=== PATIENT | female | born 1965 | race Caucasian/White ===

== ENCOUNTER → 2017-12-19 15:55 | Outpatient (CLI) | payer SELFPAY ==
[2017-12-19 17:10] LABS: Hematocrit 39.1 % (37-47); Hemoglobin 13.1 g/dl (12.0-15.0); Mean Corp Hgb Conc 33.5 g/gl (32-36); Mean Corpuscular Volume 86.7 fL (81-99); Mean Platelet Vol. 9.9 fl (6.2-12.0); Platelet Count 310 K/mm3 (150-450); RBC Distribution Width CV 13.5 % (11.6-14.6); RBC Distribution Width SD 41.8 fl (35.1-43.9); Red Blood Count 4.51 M/mm3 (4.2-5.4); Scan Indicated on CBC? Y/N NO; White Blood Count 14.6 K/mm3 (4.4-11.0)
[2017-12-19 17:51] LABS: Estradiol < 11.0 pg/mL; Follicle Stimulating Hormone 107.4 mIU/mL; Luteinizing Hormone 57.4 mIU/mL; Thyroid Stim Hormone (TSH) 0.43 uIU/mL (0.358-3.74)
[2017-12-19 18:09] LABS: Progesterone Level 0.41 ng/mL (See Comment); Vitamin D,25 Hydroxy 22.2 ng/mL (29.95-100.01)
[2017-12-21 11:23] LABS: DHEA Sulfate 184.1 ug/dL (41.2-243.7)
== END ==
PROVIDERS: Family Provider Family Medicine; PCP Family Medicine; Visit Provider Specialist
DX: R53.81 Other malaise (principal); N95.8 Other specified menopausal and perimenopausal disorders
CPT/HCPCS: 36415; 82306; 82627; 82670; 83001; 83002; 84144; 84403; 84443; 85027; 82626

== ENCOUNTER 2018-03-10 16:24 | Inpatient (IN) | payer SELFPAY ==
[2018-03-10] VITALS (9 sets, daily range): BP systolic 112–145; BP diastolic 50–85; PULSE 91–115; RESP 16–20; TEMP 37.3–38.6; O2SAT 96–99; BMI 25.0; BMI 24.7
--- NOTE | 2018-03-10 16:44 | EKG12_ITS ---
Test Reason : FEVER Blood Pressure : / mmHG Vent. Rate : 104 BPM Atrial Rate : 104 BPM P-R Int : 132 ms QRS Dur : 066 ms QT Int : 332 ms P-R-T Axes : 012 023 048 degrees QTc Int : 436 ms Sinus tachycardia Otherwise normal ECG Confirmed by DANDY GREGORIO, ML ([id number]), newspaper copy editor EUNICE SMITH ([id number] on 03/13/2018 2:45:43 PM Referred By: ARMANI Confirmed By:ML DORMAN MD
--- NOTE | 2018-03-10 16:44 | RAD_ITS ---
STUDY: X-RAY CHEST REASON FOR EXAM: Female, 52 years old. Intermittent fever x1 week TECHNIQUE: Single AP portable view of the chest. COMPARISON: None. FINDINGS: There is a right lower lobe infiltrate. There is no demonstrated pleural abnormality. Normal size heart. Normal mediastinum and sabine. Normal visualized pulmonary arteries. Normal visualized aortic arch and descending thoracic aorta. Normal visualized thoracic spine. Normal visualized ribs, clavicles, and shoulders. There is no demonstrated abnormality of the visualized soft tissue structures of the upper abdomen. RAD/Chest 1 View (Portable) IMPRESSION: Right lower lobe infiltrate. Electronically Signed: Kip Zapien MD at 17:10 EDT , Service support ,
[2018-03-10] MEDS: Acetaminophen 325 MG Tablet 650 MG PO (17:10)
[2018-03-10 17:39] LABS: Bacteria 0 SEEN /hpf (None Seen); Mucous, Urine 0 SEEN /hpf (<or=2+)
[2018-03-10 17:45] LABS: Absolute Lymphocyte Count 2.33 X10^3/ul (0.83-4.51); Absolute Neutrophil Count 12.6 X10^3/uL (2.0-7.7); Basophil# 0.03 X10^3/uL; Basophil% 0.2 % (0-1); Eosinophil# 0.02 X10^3/uL; Eosinophils% 0.1 % (0-5); Hematocrit 34.6 % (37-47); Hemoglobin 11.3 g/dl (12.0-15.0); Lymphocyte # 2.33 X10^3/ul (4.0); Lymphocyte % 14.1 % (19-41); Mean Corp Hgb Conc 32.7 g/gl (32-36); Mean Corpuscular Hgb 27.8 pg (27.0-32.0); Mean Platelet Vol. 9.3 fl (6.2-12.0); Monocyte# 1.47 X10^3/uL; Monocyte% 8.9 % (0-10); Neutrophil # 12.64 X10^3/uL (2.7-7.7); Neutrophil % 76.5 % (47-70); Platelet Count 309 K/mm3 (150-450); RBC Distribution Width CV 13.3 % (11.6-14.6); RBC Distribution Width SD 41.4 fl (35.1-43.9); Red Blood Count 4.07 M/mm3 (4.2-5.4); White Blood Count 16.5 K/mm3 (4.4-11.0)
[2018-03-10 17:48] LABS: Color, Urine Yellow (Yellow); Glucose, Dipstick Normal (Normal); Ketone-Dipstick Negative (Negative); Leukocyte Esterase-Dipstick 100 /ul (Negative); Nitrite-Dipstick Negative (Negative); Occult Blood-Urine 10 /ul (Negative); Protein-Dipstick Negative (Negative); Specific Gravity, Urine 1.005 (1.002-1.030); Urine Bilirubin Dipstick Negative (Negative); Urine Clarity Sl. Cloudy (Clear); Urine Urobilinogen Normal (Normal); Urine pH 6.5 (5.0 - 8.0)
[2018-03-10 17:53] LABS: POSITIVE COUNT NO; POSITIVE DIFFERENTIAL NO; POSITIVE MORPHOLOGY NO
[2018-03-10 17:55] LABS: International Normalized Ratio 1.1; Prothrombin Time (Protime)PT. 14.1 SECONDS (11.7-14.9)
[2018-03-10 17:56] LABS: Partial Thromboplast Time 33.4 Seconds (24.1-36.2)
[2018-03-10 18:03] LABS: ALB/GLOB Ratio 0.7 RATIO (0.9-2.4); AST(SGOT) 23 U/L (15-37); Alanine Aminotransfer ALT/SGPT 43 U/L (13-56); Albumin, Serum 3.3 g/dL (3.2-5.0); Alkaline Phosphatase 85 U/L (45-117); Anion Gap 7 (5-15); BUN 10 mg/dL (7-18); BUN/Creat Ratio 14.9 RATIO (10-20); Calcium,Total 8.7 mg/dL (8.5-10.1); Chloride 103 mmol/L (98-107); Creatinine, Serum 0.67 mg/dL (0.55-1.02); EST Glomerular Filtration Rate 98 mL/min (>60); Est Glom Filt Rate - Afr Amer 119 mL/min (>60); Estimated Creatinine Clearance 82.17 ml/min; Globulin 4.7 g/dL (2.2-4.2); Glucose 85 mg/dL (74-106); Potassium 3.4 mmol/L (3.5-5.1); Sodium Level 136 mmol/L (136-145)
[2018-03-10 18:09] LABS: Red Blood Cells-Urine 0-5 SEEN /hpf (0-5); Squamous Epithelial Cells - UA 0-5 SEEN /hpf (5-10); White Blood Cells 5-10 SEEN /hpf (0-5)
--- NOTE | 2018-03-10 18:53 | ED.DCSUM_ITS ---
- ER Visit Summary Date of Service: 03/10/18 Chief Complaint: Patient presents with a fever. History of Present Illness: The patient is a 52 F who has a fever. Started yesterday. She took her temperature orally and it was 103?F at home. Patient has had some sinus congestion and headache as well. She has had some slight dysuria. She also admits to a cough. No nausea, vomiting or diarrhea. She has been trying Advil and allergy medicines without any relief. She has a history of Kilpatrick syndrome and has had colon cancer, uterine cancer and skin cancer. She has had a full colectomy. Physical Examination: Vital signs reviewed. HEENT exam unremarkable. Heart is tachycardic and regular rhythm without murmurs. Lungs are clear to auscultation. Abdomen is soft and nontender. Extremities reveal no edema. Skin exam normal. Neurologic exam normal. Test Results: EKG is sinus rhythm with a rate of 104 chest x-ray reveals a right lower lobe infiltrate consistent with pneumonia. White blood cell count 16.5. Lactate normal Emergency Department Course and Treatment: Patient has sepsis with a pulmonary source. Blood pressure is been normal throughout her stay in the hospital. She has not been in the hospital in the past 3 months. I will give her Rocephin and azithromycin. She will be admitted to the hospital. Treatment Plan: [] Disposition: Admit Impression: Sepsis, community-acquired pneumonia This note was generated with [employer] dictation software. It may contain incorrect words, spelling, and punctuation that were not noted in review of the chart prior to signing ED Disposition - Plan for ED Patient: Chief Complaint: Fever Referrals: Hermelinda Live MD [Primary Care Provider] -
[2018-03-10] MEDS: Ceftriaxone 1 GM/50 ML BAG IV (19:03)
--- NOTE | 2018-03-10 19:55 | HP.PCM_ITS ---
Problem List (1) Sepsis Status: Acute (2) CAP (community acquired pneumonia) Status: Acute (3) Hemorrhoids Status: Acute (4) History of colon cancer Status: Acute (5) History of incisional hernia repair Status: Acute Comment: 11/06/2017 (6) History of uterine cancer Status: Acute (7) Hypothyroidism Status: Acute (8) Kilpatrick syndrome Status: Acute History of Present Illness Date of Admission: 03/10/18 Chief Complaint: Sepsis secondary to CAP The patient is a 52 year old female w/ h/o hypothyroid, Kilpatrick syndrome, colon cancer s/p colectomy, uterine cancer and skin cancer is admitted for sepsis secondary to CAP. She felt generalized malaise and myalgia yesterday. She had chill and spiked a fever to 103. She has a nonproductive cough. No change in frequency or intensity of the cough. No sick contact. She also has congestion and a dull throbbing headache. Nothing appeared to make the headache better or worse. The headache was episodic. Headache was not associated with any other symptoms. She tried Advil to help with her symptoms but no improvement. She came to the ED for further evaluation. Past Medical History Allergies adhesive tape Allergy (Verified 03/10/18 17:16) Rash Penicillins Adverse Reaction (Mild, Verified 03/10/18 17:16) canker sores canker sores Home Medications: Ambulatory Orders Medication Instructions Recorded ascorbic acid (vitamin C) 500 mg 500 mg PO QDAY 10/25/17 chewable tablet digestive enzymes tablet 1 tab PO TID 10/25/17 estradiol 0.5 mg tablet 0.5 mg PO QDAY 10/25/17 lactobacillus combination no.8 3 3,000 mmu cells PO QDAY 10/25/17 billion cell capsule progesterone micronized 200 mg 400 mg PO QHS cap 10/25/17 capsule Amour Thyroid 45 mg PO DAILY 10/30/17 Indoltlex 1 cap PO DAILY 10/30/17 Multivit with Calcium,Iron,Min 4 ea PO DAILY 10/30/17 [Multiple Vitamins For Women] Surgical History: - - Colectomy Psychiatric History: No pertinent psych hx 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 Denies: Weight Change HEENT: Reports: Head Aches. Denies: Sinus Congestion, Sinus Drainage Cardiovascular: Denies: Chest Pain, Palpitations Respiratory: Reports: Cough, Shortness of Breath. Denies: Shortness of breath at rest, Sputum production Gastrointestinal: Denies: Abdominal Pain, Nausea, Vomiting Genitourinary: Denies: Dysuria Musculoskeletal: Denies: Joint Pain, Joint Tenderness Skin: Denies: Rash, Wounds Neurological: Denies: Numbness, Tingling, Focal weakness Psychiatric: Denies: Anxiety, Depression, Homicidal Ideations, Suicidal Ideations Hematologic/ Lymphatic: Denies: Easy Bruising, Easy Bleeding VTE Information - Inpt Only VTE Present on Admission: No VTE Mechan Device Prophylaxis: SCD's VTE Pharm Prophylaxis ordered?: Yes Patient Problems: Active and Suspected Problems (Last Reviewed 11/15/17 @ 07:47 by Ginny Lopez) Sepsis (Acute) CAP (community acquired pneumonia) (Acute) - Physical Exam General: Alert, Oriented x3, Cooperative HEENT: Atraumatic, PERRLA, EOMI, Normocephalic Neck: Supple, No JVD, Negative Carotid Bruits Lungs: Diminished, Rales, Wheezes Cardiovascular: Regular rate, No murmurs Abdomen: Bowel Sounds Present, Soft, Non Tender Extremities: No edema, Capillary Refill Less than 3 Seconds Skin: No rashes, No breakdown Musculoskeletal: No Tenderness to Palpation of Joints or Extremities Neurological: Cranial nerves II-XII grossly intact Psych/Mental Status: Normal Affect, Appropriate Vital Signs Temp Pulse Resp BP Pulse Ox 101.5 F H 97 20 H 115/65 98 03/10/18 17:33 03/10/18 19:01 03/10/18 19:01 03/10/18 19:01 03/10/18 19:01 Oxygen Flow Rate (L/min) 2 Oxygen Delivery Method Nasal Cannula Weight: 64.1 kg Body Mass Index (BMI) 25.0 Laboratory Tests Past 24 Hrs 03/10/18 03/10/18 03/10/18 17:15 17:15 17:15 WBC 16.5 H RBC 4.07 L Hgb 11.3 L Hct 34.6 L MCV 85.0 MCH 27.8 MCHC 32.7 RDW 13.3 RDW Differential 41.4 Plt Count 309 MPV 9.3 Immature Gran % (Auto) 0.200 Neut % (Auto) 76.5 H Lymph % (Auto) 14.1 L Foster % (Auto) 8.9 Eos % (Auto) 0.1 Baso % (Auto) 0.2 Absolute Neuts (auto) 12.6 H Absolute Lymphs (auto) 2.33 Total Counted Not Reportable PT 14.1 INR 1.1 APTT 33.4 Sodium 136 Potassium 3.4 L Chloride 103 Carbon Dioxide 26.0 Anion Gap 7 BUN 10 Creatinine 0.67 Estim Creat Clear Calc 82.17 Est GFR (MDRD) Af Amer 119 Est GFR (MDRD) Non-Af 98 BUN/Creatinine Ratio 14.9 Glucose 85 Lactic Acid Calcium 8.7 Total Bilirubin 0.50 AST 23 ALT 43 Alkaline Phosphatase 85 Total Protein 8.0 Albumin 3.3 Globulin 4.7 H Albumin/Globulin Ratio 0.7 L Urine Color Urine Clarity Urine pH Ur Specific [place] Urine Protein Urine Glucose (UA) Urine Ketones Urine Occult Blood Urine Nitrite Urine Bilirubin Urine Urobilinogen Ur Leukocyte Esterase Urine RBC Urine WBC Ur Squamous Epith Cells Urine Bacteria Urine Mucus 03/10/18 03/10/18 17:15 17:20 WBC RBC Hgb Hct MCV MCH MCHC RDW RDW Differential Plt Count MPV Immature Gran % (Auto) Neut % (Auto) Lymph % (Auto) Foster % (Auto) Eos % (Auto) Baso % (Auto) Absolute Neuts (auto) Absolute Lymphs (auto) Total Counted PT INR APTT Sodium Potassium Chloride Carbon Dioxide Anion Gap BUN Creatinine Estim Creat Clear Calc Est GFR (MDRD) Af Amer Est GFR (MDRD) Non-Af BUN/Creatinine Ratio Glucose Lactic Acid 1.0 Calcium Total Bilirubin AST ALT Alkaline Phosphatase Total Protein Albumin Globulin Albumin/Globulin Ratio Urine Color Yellow Urine Clarity Sl. Cloudy Urine pH 6.5 Ur Specific [place] 1.005 Urine Protein Negative Urine Glucose (UA) Normal Urine Ketones Negative Urine Occult Blood 10 H Urine Nitrite Negative Urine Bilirubin Negative Urine Urobilinogen Normal Ur Leukocyte Esterase 100 H Urine RBC 0-5 SEEN Urine WBC 5-10 SEEN Ur Squamous Epith Cells 0-5 SEEN Urine Bacteria 0 SEEN Urine Mucus 0 SEEN Assessment/Plan Active and Suspected Problems (Last Reviewed 11/15/17 @ 07:47 by Ginny Lopez) Sepsis (Acute) CAP (community acquired pneumonia) (Acute) 52 year old female w/ h/o hypothyroid, Kilpatrick syndrome, colon cancer s/p colectomy, uterine cancer and skin cancer is admitted for sepsis secondary to CAP. 1) Sepsis secondary to CAP: Chest xray disclosed a right lower lobe infiltrate. Leukocytosis and fever noted. She has cough. Will start ceftriaxone and azithromycin. Cultures pending. 2) Anemia: Stable. Probably secondary to chronic disease. Monitor. 3) Chronic issues: hypothyroid, Kilpatrick syndrome, colon cancer s/p colectomy, uterine cancer and skin cancer: Resume home meds. Supportive care. 4) Prophylaxis: Lovenox
[2018-03-10] MEDS: guaiFENesin 1,200 MG Tablet 1200 MG PO (23:11)
[2018-03-11] VITALS (8 sets, daily range): BP systolic 105–116; BP diastolic 66–68; PULSE 55–93; RESP 16–18; TEMP 36.8–37; O2SAT 98–100
[2018-03-11] MEDS: Ipratropium/Albuterol Sulfate 3 ML AMPUL.NEB INHALATION ×3 (00:50→12:56)
[2018-03-11] MEDS: 0.9% Normal Saline 1,000 ML 125 ML IV (03:36)
--- NOTE | 2018-03-11 04:30 | RAD_ITS ---
STUDY: X-RAY CHEST REASON FOR EXAM: Female, 52 years old. Short of breath, dyspnea. TECHNIQUE: PA and lateral chest. COMPARISON: 03/10/2018. FINDINGS: Right middle lobe moderately dense infiltrate, consistent with acute pneumonia. Normal cardiomediastinal silhouette, sabine and pleural margins. No acute osseous or upper abdominal process. RAD/Chest PA and Lateral IMPRESSION: Right middle lobe partially consolidating pneumonia. Electronically Signed: Jony Fraser, at 8:37 EDT Tel , Service support ,
[2018-03-11] MEDS: Thyroid 15 MG Tablet 45 MG PO (06:10)
--- NOTE | 2018-03-11 09:22 | PCM.PN.HOSP ---
Patient Problems: Active and Suspected Problems (Last Reviewed 11/15/17 @ 07:47 by Ginny Lopez) Sepsis (Acute) CAP (community acquired pneumonia) (Acute) Subjective: feeling good. complains of pain in lateral neck when she coughs. coughs non-productive. Vitals/I&O's: Vital Signs Temp Pulse Resp BP Pulse Ox 37.0 C 85 16 108/66 98 03/11/18 04:00 03/11/18 07:06 03/11/18 07:06 03/11/18 04:00 03/11/18 04:00 Oxygen Delivery Method Room Air Weight: 63.2 kg Body Mass Index (BMI) 24.7 Intake and Output for Last 24 Hours 03/09/18 03/10/18 03/11/18 23:59 23:59 23:59 Intake Total 1580 / 1580 Balance 1580 / 1580 General: Alert, Cooperative, No apparent distress, Well developed, Well nourished HEENT: Atraumatic, Normocephalic Oral: Moist Mucosa Neck: No Nodes, Thyroid Normal Size and Texture Lungs: No rhonchi, No wheeze, - - crackles RLL Cardiovascular: Regular rate, Regular Rhythm, Normal S1, Normal S2 Abdomen: Bowel Sounds Present, Soft, Non Tender, Non-Distended, No Hepato-splenomegaly, Passing Flatus Extremities: No edema, No Calf Tenderness Psych/Mental Status: Normal Affect, Appropriate Microbiology Past 72 Hours 03/10/18 22:12 Urine, Clean Catch Streptococcus pneumoniae Antigen (M - Final 03/10/18 22:12 Urine, Clean Catch Legionella Antigen - Final 03/10/18 20:58 Mucosa - Nasopharyngeal Influenza Types A,B Direct FA (TRISTAN) - Final Current Medications Acetaminophen (Tylenol) 650 mg PO Q4H PRN PRN PRN Reason: FEVER Albuterol/Ipratropium (Duoneb) 3 ml INHALATION Q6H.RT [facility] Last Admin: 03/11/18 07:06 Dose: 3 ml Ascorbic Acid (Vitamin C) 500 mg PO DAILY [facility] Enoxaparin Sodium (Lovenox) 40 mg SC DAILY [facility] Estradiol (Estradiol) 0.5 mg PO DAILY [facility] Guaifenesin (Mucinex) 1,200 mg PO BID [facility] Last Admin: 03/10/18 23:11 Dose: 1,200 mg Sodium Chloride () 1,000 mls @ 125 mls/hr IV .Q8H [facility] Last Admin: 03/11/18 03:36 Dose: 125 mls/hr Ceftriaxone Sodium (Rocephin) 1 gm in 50 mls @ 100 mls/hr IV Q24 [facility] Azithromycin 500 mg/ Dextrose 255 mls @ 250 mls/hr IV Q24 [facility] Stop: 03/13/18 11:02 Lactobacillus Acidophilus (Acidophilus) 1 tablet PO DAILY [facility] Sodium Chloride () 5 - 30 ml IV UD PRN PRN Reason: SALINE FLUSH Thyroid ([place] Thyroid) 45 mg PO DAILY@0600 [facility] Last Admin: 03/11/18 06:10 Dose: 45 mg Medical Necessity - Tobacco Use Smoking Status: Never smoker Assessment/Plan Active and Suspected Problems (Last Reviewed 11/15/17 @ 07:47 by Ginny Lopez) Sepsis (Acute) CAP (community acquired pneumonia) (Acute) 1. Sepsis: POA resolved 2/2 #2 2. suspected pneumococcal pneumonia strep Ag, leg Ag, flu negative discharge with Levaquin and albuterol MDI ok to return to work as long and she does not have fevers.
--- NOTE | 2018-03-11 09:27 | PN_ITS ---
Patient Problems: Active and Suspected Problems (Last Reviewed 11/15/17 @ 07:47 by Ginny Lopez) Sepsis (Acute) CAP (community acquired pneumonia) (Acute) Subjective: feeling good. complains of pain in lateral neck when she coughs. coughs non- productive. Vitals/I&O's: Vital Signs Temp Pulse Resp BP Pulse Ox 37.0 C 85 16 108/66 98 03/11/18 04:00 03/11/18 07:06 03/11/18 07:06 03/11/18 04:00 03/11/18 04:00 Oxygen Delivery Method Room Air Weight: 63.2 kg Body Mass Index (BMI) 24.7 Intake and Output for Last 24 Hours 03/09/18 03/10/18 03/11/18 23:59 23:59 23:59 Intake Total 1580 / 1580 Balance 1580 / 1580 General: Alert, Cooperative, No apparent distress, Well developed, Well nourished HEENT: Atraumatic, Normocephalic Oral: Moist Mucosa Neck: No Nodes, Thyroid Normal Size and Texture Lungs: No rhonchi, No wheeze, - - crackles RLL Cardiovascular: Regular rate, Regular Rhythm, Normal S1, Normal S2 Abdomen: Bowel Sounds Present, Soft, Non Tender, Non-Distended, No Hepato- splenomegaly, Passing Flatus Extremities: No edema, No Calf Tenderness Psych/Mental Status: Normal Affect, Appropriate Microbiology Past 72 Hours 03/10/18 22:12 Urine, Clean Catch Streptococcus pneumoniae Antigen (M - Final 03/10/18 22:12 Urine, Clean Catch Legionella Antigen - Final 03/10/18 20:58 Mucosa - Nasopharyngeal Influenza Types A,B Direct FA (TRISTAN) - Final Current Medications Acetaminophen (Tylenol) 650 mg PO Q4H PRN PRN PRN Reason: FEVER Albuterol/Ipratropium (Duoneb) 3 ml INHALATION Q6H.[facility] Last Admin: 03/11/18 07:06 Dose: 3 ml Ascorbic Acid (Vitamin C) 500 mg PO DAILY [facility] Enoxaparin Sodium (Lovenox) 40 mg SC DAILY [facility] Estradiol (Estradiol) 0.5 mg PO DAILY [facility] Guaifenesin (Mucinex) 1,200 mg PO BID [facility] Last Admin: 03/10/18 23:11 Dose: 1,200 mg Sodium Chloride () 1,000 mls @ 125 mls/hr IV .Q8H [facility] Last Admin: 03/11/18 03:36 Dose: 125 mls/hr Ceftriaxone Sodium (Rocephin) 1 gm in 50 mls @ 100 mls/hr IV Q24 [facility] Azithromycin 500 mg/ Dextrose 255 mls @ 250 mls/hr IV Q24 [facility] Stop: 03/13/18 11:02 Lactobacillus Acidophilus (Acidophilus) 1 tablet PO DAILY [facility] Sodium Chloride () 5 - 30 ml IV UD PRN PRN Reason: SALINE FLUSH Thyroid ([place] Thyroid) 45 mg PO DAILY@0600 [facility] Last Admin: 03/11/18 06:10 Dose: 45 mg Medical Necessity - Tobacco Use Smoking Status: Never smoker Assessment/Plan Active and Suspected Problems (Last Reviewed 11/15/17 @ 07:47 by Ginny Lopez) Sepsis (Acute) CAP (community acquired pneumonia) (Acute) 1. Sepsis: * POA * resolved * 2/2 #2 2. suspected pneumococcal pneumonia * strep Ag, leg Ag, flu negative * discharge with Levaquin and albuterol MDI * ok to return to work as long and she does not have fevers.
--- NOTE | 2018-03-11 09:31 | PCM.DC ---
- Discharge Diagnoses Current Active Problems: Current Active and Chronic Problems (Last Reviewed 11/15/17 @ 07:47 by Ginny Lopez) Sepsis (Acute) CAP (community acquired pneumonia) (Acute) You will use the following diet at home:: No restrictions Your food should be the consistency of: Regular Your liquids should be the consistency of: Regular/Thin Discharge Activity: Return to Normal Activity Call your doctor if you observe: Fever of 101 or Higher, Shortness of breath Allergies/Adverse Reactions: Allergies adhesive tape Allergy (Verified 03/10/18 17:16) Rash Penicillins Adverse Reaction (Mild, Verified 03/10/18 17:16) canker sores canker sores Medications to take at Discharge ascorbic acid (vitamin C) 500 mg chewable tablet 500 mg PO QDAY 10/25/17 digestive enzymes tablet 1 tab PO TID 10/25/17 estradiol 0.5 mg tablet 0.5 mg PO QDAY 10/25/17 lactobacillus combination no.8 3 billion cell capsule 3,000 mmu cells PO QDAY 10/25/17 progesterone micronized 200 mg capsule 400 mg PO QHS cap 10/25/17 Amour Thyroid 45 mg PO DAILY 10/30/17 Indoltlex 1 cap PO DAILY 10/30/17 Multivit with Calcium,Iron,Min [Multiple Vitamins For Women] 4 ea PO DAILY 10/30/17 Albuterol Inhaler [Ventolin Hfa] 1 - 2 puff INHALATION Q4H PRN PRN #1 inhaler 03/11/18 Guaifenesin [Mucinex] 1,200 mg PO BID #10 tab 03/11/18 levoFLOXacin tablet [Levaquin tablet] 750 mg PO DAILY #5 tab 03/11/18 The following prescriptions were given: Albuterol Inhaler [Ventolin Hfa] 1 - 2 puff INHALATION Q4H PRN PRN #1 inhaler PRN Reason: Shortness Of Breath levoFLOXacin tablet [Levaquin tablet] 750 mg PO DAILY #5 tab Guaifenesin [Mucinex] 1,200 mg PO BID #10 tab Primary Care Physician: Hermelinda Live MD [Primary Care Provider] - Within 2 Weeks Proposed Discharge Date: 03/11/18
--- NOTE | 2018-03-11 09:32 | PCM.DC.SUM ---
Discharge Date and Diagnosis - Problem List Patient Problems: Active and Suspected Problems (Last Reviewed 11/15/17 @ 07:47 by Ginny Lopez) Sepsis (Acute) CAP (community acquired pneumonia) (Acute) Date of Admission: 03/10/18 Date of Discharge: 03/11/18 - Primary Discharge Diagnosis Active and Suspected Problems (Last Reviewed 11/15/17 @ 07:47 by Ginny Lopez) Sepsis (Acute) CAP (community acquired pneumonia) (Acute) Hospital Course and Treatment Imaging Results: 03/11/18 04:30 Chest PA and Lateral [RAD] Routine Clinical Impression(s) from Imaging Studies Chest X-Ray 03/10/18 16:44 IMPRESSION: Right lower lobe infiltrate. Electronically Signed: Kip Zapien MD at 17:10 EDT , Service support , Chest X-Ray 03/11/18 04:30 IMPRESSION: Right middle lobe partially consolidating pneumonia. Electronically Signed: Jony Fraser at 8:37 EDT Tel , Service support , Operations: None Procedures: None Summary of Care Provided: The patient is a 52 year old F presents with malaise and myalgias. Patient had a temperature of 103 Fahrenheit. Patient had chest x-ray that showed possible right lower lobe pneumonia. Patient was admitted for pneumonia. Patient was started on Rocephin and azithromycin. The following day patient is feeling much better, no further fever patient is not clinically septic. Patient did have urinary antigens for Streptococcus and Legionella which were negative. Flu was also negative. Patient will be discharged with 5 days of Levaquin. Patient is advised to follow-up with her primary care physician in the next 1-2 weeks. Patient instructed to return if she is feeling worse. [] Discharge Diet: No Restrictions Discharge Activity: Return to Normal Activity Call your doctor if you observe: Fever of 101 or Higher, Shortness of breath Home Medications: Medications to take at Discharge ascorbic acid (vitamin C) 500 mg chewable tablet 500 mg PO QDAY 10/25/17 digestive enzymes tablet 1 tab PO TID 10/25/17 estradiol 0.5 mg tablet 0.5 mg PO QDAY 10/25/17 lactobacillus combination no.8 3 billion cell capsule 3,000 mmu cells PO QDAY 10/25/17 progesterone micronized 200 mg capsule 400 mg PO QHS cap 10/25/17 Amour Thyroid 45 mg PO DAILY 10/30/17 Indoltlex 1 cap PO DAILY 10/30/17 Multivit with Calcium,Iron,Min [Multiple Vitamins For Women] 4 ea PO DAILY 10/30/17 Albuterol Inhaler [Ventolin Hfa] 1 - 2 puff INHALATION Q4H PRN PRN #1 inhaler 03/11/18 Guaifenesin [Mucinex] 1,200 mg PO BID #10 tab 03/11/18 levoFLOXacin tablet [Levaquin tablet] 750 mg PO DAILY #5 tab 03/11/18 Following Prescrptions Were Given to Patient: Albuterol Inhaler [Ventolin Hfa] 1 - 2 puff INHALATION Q4H PRN PRN #1 inhaler PRN Reason: Shortness Of Breath levoFLOXacin tablet [Levaquin tablet] 750 mg PO DAILY #5 tab Guaifenesin [Mucinex] 1,200 mg PO BID #10 tab Primary Care Physician: Hermelinda Live MD [Primary Care Provider] - Within 2 Weeks Disposition: Home Minutes spent on discharge:: 28 Patient Condition:: Good Medical Necessity - Tobacco Use Smoking Status: Never smoker Meaningful Use Info Meaningful Use Diagnoses (Choose all that apply): None applicable Code Visit Inpatient E&M: 61128 Disch Hosp
--- NOTE | 2018-03-11 09:35 | DS.PCM_ITS ---
Discharge Date and Diagnosis - Problem List Patient Problems: Active and Suspected Problems (Last Reviewed 11/15/17 @ 07:47 by Ginny Lopez) Sepsis (Acute) CAP (community acquired pneumonia) (Acute) Date of Admission: 03/10/18 Date of Discharge: 03/11/18 - Primary Discharge Diagnosis Active and Suspected Problems (Last Reviewed 11/15/17 @ 07:47 by Ginny Lopez) Sepsis (Acute) CAP (community acquired pneumonia) (Acute) Hospital Course and Treatment Imaging Results: 03/11/18 04:30 Chest PA and Lateral [RAD] Routine Clinical Impression(s) from Imaging Studies Chest X-Ray 03/10/18 16:44 IMPRESSION: Right lower lobe infiltrate. Electronically Signed: Kip Zapien MD at 17:10 EDT , Service support , Chest X-Ray 03/11/18 04:30 IMPRESSION: Right middle lobe partially consolidating pneumonia. Electronically Signed: Jony Fraser at 8:37 EDT Tel , Service support , Operations: None Procedures: None Summary of Care Provided: The patient is a 52 year old F presents with malaise and myalgias. Patient had a temperature of 103 Fahrenheit. Patient had chest x-ray that showed possible right lower lobe pneumonia. Patient was admitted for pneumonia. Patient was started on Rocephin and azithromycin. The following day patient is feeling much better, no further fever patient is not clinically septic. Patient did have urinary antigens for Streptococcus and Legionella which were negative. Flu was also negative. Patient will be discharged with 5 days of Levaquin. Patient is advised to follow-up with her primary care physician in the next 1-2 weeks. Patient instructed to return if she is feeling worse. [] Discharge Diet: No Restrictions Discharge Activity: Return to Normal Activity Call your doctor if you observe: Fever of 101 or Higher, Shortness of breath Home Medications: Medications to take at Discharge ascorbic acid (vitamin C) 500 mg chewable tablet 500 mg PO QDAY 10/25/17 digestive enzymes tablet 1 tab PO TID 10/25/17 estradiol 0.5 mg tablet 0.5 mg PO QDAY 10/25/17 lactobacillus combination no.8 3 billion cell capsule 3,000 mmu cells PO QDAY progesterone micronized 200 mg capsule 400 mg PO QHS cap 10/25/17 Amour Thyroid 45 mg PO DAILY 10/30/17 Indoltlex 1 cap PO DAILY 10/30/17 Multivit with Calcium,Iron,Min [Multiple Vitamins For Women] 4 ea PO DAILY 10/30 Albuterol Inhaler [Ventolin Hfa] 1 - 2 puff INHALATION Q4H PRN PRN #1 inhaler Guaifenesin [Mucinex] 1,200 mg PO BID #10 tab 03/11/18 levoFLOXacin tablet [Levaquin tablet] 750 mg PO DAILY #5 tab 03/11/18 Following Prescrptions Were Given to Patient: Albuterol Inhaler [Ventolin Hfa] 1 - 2 puff INHALATION Q4H PRN PRN #1 inhaler PRN Reason: Shortness Of Breath levoFLOXacin tablet [Levaquin tablet] 750 mg PO DAILY #5 tab Guaifenesin [Mucinex] 1,200 mg PO BID #10 tab Primary Care Physician: Hermelinda Live MD [Primary Care Provider] - Within 2 Weeks Disposition: Home Minutes spent on discharge:: 28 Patient Condition:: Good Medical Necessity - Tobacco Use Smoking Status: Never smoker Meaningful Use Info Meaningful Use Diagnoses (Choose all that apply): None applicable Code Visit Inpatient E&M: 24251 Disch Hosp
[2018-03-11] MEDS: guaiFENesin 1,200 MG Tablet 1200 MG PO (09:57)
[2018-03-11] MEDS: Ascorbic Acid 500 MG Tablet PO (10:00)
[2018-03-11] MEDS: Ceftriaxone 1 GM/50 ML BAG IV (10:05)
== END 2018-03-11 13:10 | disposition home or self-care (01) | DRG 871 ==
LOC: ED 18:35 → MS3 19:49
PROVIDERS: Admitting Provider Internal Medicine; Emergency Provider Emergency Medicine; Family Provider Family Medicine; PCP Family Medicine
DX: A41.9 Sepsis, unspecified organism (principal); J18.9 Pneumonia, unspecified organism; R30.0 Dysuria; Z85.038 Personal history of other malignant neoplasm of large intestine; Z85.42 Personal history of malignant neoplasm of other parts of uterus; Z85.828 Personal history of other malignant neoplasm of skin; E03.9 Hypothyroidism, unspecified; D64.9 Anemia, unspecified
CPT/HCPCS: 36415; 71045; 71046; 80053; 81001; 83605; 85025; 85610; 85730; 87040; 87077; 87086; 87088; 87186; 87449; 87804; 93005; 94640; 99283; J7030; A4216

== ENCOUNTER → 2018-06-04 07:17 | Outpatient (CLI) | payer SELFPAY ==
[2018-06-04 08:56] LABS: Estradiol 23.5 pg/mL; Free T3 2.9 pg/mL (2.18-3.98); T4 Free Direct 0.88 ng/dL (0.76-1.46); Thyroid Stim Hormone (TSH) 1.42 uIU/mL (0.358-3.74)
[2018-06-05 08:57] LABS: Progesterone Level 38.79 ng/mL (See Comment)
== END ==
PROVIDERS: Family Provider Family Medicine; PCP Family Medicine; Visit Provider Specialist
DX: E03.8 Other specified hypothyroidism (principal); N95.1 Menopausal and female climacteric states
CPT/HCPCS: 36415; 82670; 84144; 84403; 84439; 84443; 84481

== ENCOUNTER 2018-07-23 19:24 | Emergency (ER) | payer SELFPAY ==
[2018-07-23 19:26] VITALS: BP 138/94; PULSE 85; RESP 16; TEMP 37; O2SAT 100; BMI 23.9
[2018-07-23 20:33] VITALS: PULSE 87; RESP 17; O2SAT 97
[2018-07-23 20:34] LABS: Absolute Neutrophil Count 4.6 X10^3/uL (2.0-7.7); Basophil# 0.04 X10^3/uL; Basophil% 0.5 % (0-1); Eosinophil# 0.27 X10^3/uL; Eosinophils% 3.1 % (0-5); Hematocrit 41.9 % (37-47); Lymphocyte % 36.6 % (19-41); Mean Corp Hgb Conc 33.4 g/gl (32-36); Mean Corpuscular Hgb 28.9 pg (27.0-32.0); Mean Corpuscular Volume 86.4 fL (81-99); Mean Platelet Vol. 9.6 fl (6.2-12.0); Monocyte# 0.65 X10^3/uL; Monocyte% 7.4 % (0-10); Neutrophil # 4.58 X10^3/uL (2.7-7.7); Neutrophil % 52.3 % (47-70); Platelet Count 340 K/mm3 (150-450); RBC Distribution Width CV 13.2 % (11.6-14.6); Red Blood Count 4.85 M/mm3 (4.2-5.4); White Blood Count 8.8 K/mm3 (4.4-11.0)
[2018-07-23] MEDS: 0.9% Normal Saline 1,000 ML 150 ML IV (20:37)
[2018-07-23 20:40] LABS: POSITIVE COUNT NO; POSITIVE DIFFERENTIAL NO; POSITIVE MORPHOLOGY NO
[2018-07-23 20:52] LABS: Anion Gap 7 (5-15); BUN 19 mg/dL (7-18); BUN/Creat Ratio 19.8 RATIO (10-20); Calcium,Total 9.6 mg/dL (8.5-10.1); Chloride 105 mmol/L (98-107); Creatinine, Serum 0.96 mg/dL (0.55-1.02); EST Glomerular Filtration Rate 65 mL/min (>60); Est Glom Filt Rate - Afr Amer 79 mL/min (>60); Estimated Creatinine Clearance 56.71 ml/min; Glucose 91 mg/dL (74-106); Potassium 4.2 mmol/L (3.5-5.1); Sodium Level 139 mmol/L (136-145)
[2018-07-23 21:42] LABS: Partial Thromboplast Time 26.9 Seconds (24.1-36.2)
[2018-07-23 22:23] VITALS: BP 117/79; PULSE 85; RESP 18; O2SAT 100
--- NOTE | 2018-07-23 22:46 | ED.VISSUMM ---
- ER Visit Summary Date of Service: 07/23/18 Chief Complaint: GI bleed History of Present Illness: The patient is a 53 F who passed bright red blood per rectum just prior to arrival. She had normal bowel movement 1/2-hour prior to that. She denies abdominal pain. She is a history of Kilpatrick syndrome. All but 9 cm of her colon was removed 1 year ago. She had a lower scope and EGD in March that was unremarkable. Physical Examination: Vital signs are unremarkable. Patient sitting upright in bed no acute distress. Head neck examination is unremarkable. Heart is regular rate and rhythm. Lung sounds are clear. Abdomen soft nontender. Rectal examination reveals a small inflamed hemorrhoid without gross blood. There is brown stool on gloved finger. Test Results: CBC and chemistry studies normal. Coags normal. Stool guaiac does return positive. Emergency Department Course and Treatment: Patient is given IV fluids here. She has maintained normal vitals throughout. She has had no further bleeding at this time. Patient is scheduled to leave for a one-week trip to [place] tomorrow. I spoke with Dr. Warner and reviewed her case. At this time she feels it is likely safe for the patient to travel as planned. She only has 9 cm of large bowel present and was just scoped 4 months ago. The blood likely came from hemorrhoids. This was discussed with the patient. I did offer to admit her for further testing if she did not feel comfortable with discharge, but her testing would not be able to be completed and time for her to leave for her trip. After discussion with her family she has agreed that she would like to go home. If her symptoms worsen she will return. Treatment Plan: [] Disposition: Discharge Impression: Stable lower GI bleed This note was generated with [employer] dictation software. It may contain incorrect words, spelling, and punctuation that were not noted in review of the chart prior to signing ED Disposition - Plan for ED Patient: Disposition: Home or Assisted Living Chief Complaint: GI Bleed Instructions: ED Hematochezia Stable Referrals: Hermelinda Live MD [Primary Care Provider] - Additional Instructions: Follow-up with your Kilpatrick Syndrome specialist in 1-2 weeks.
[2018-07-23 22:55] VITALS: BP 117/79; PULSE 85; RESP 18; O2SAT 100
== END 2018-07-23 23:05 | disposition home or self-care (01) ==
PROVIDERS: Emergency Provider Emergency Medicine; Family Provider Family Medicine; PCP Family Medicine
DX: K92.1 Melena (principal); K64.9 Unspecified hemorrhoids; Z85.038 Personal history of other malignant neoplasm of large intestine; Z85.42 Personal history of malignant neoplasm of other parts of uterus; Z90.49 Acquired absence of other specified parts of digestive tract
CPT/HCPCS: 80048; 82274; 85025; 85610; 85730; 96360; 96361; 99284; J7030; A4216

== ENCOUNTER → 2018-11-26 07:58 | Outpatient (CLI) | payer SELFPAY ==
[2018-11-26 10:20] LABS: Estradiol 22.9 pg/mL; Free T3 2.4 pg/mL (2.18-3.98)
[2018-11-26 12:09] LABS: Progesterone Level 46.86 ng/mL (See Comment)
== END ==
PROVIDERS: Family Provider Family Medicine; PCP Family Medicine; Referring Provider Specialist; Visit Provider Specialist
DX: N95.1 Menopausal and female climacteric states (principal); E03.8 Other specified hypothyroidism
CPT/HCPCS: 36415; 82670; 84144; 84403; 84481